=== PATIENT | female | born 1980 | race Caucasian/White ===

== ENCOUNTER 2025-10-07 10:40 | Outpatient (CLI) | payer BC, SELFPAY ==
--- OUTSIDE RECORDS SUMMARY | 2025-10-08 12:02 | XMS_ITS | Clinical Summary ---
Author Organization [facility] Address [address] [place] [address] Care Team Providers Care Direct Entry Midwife Name Role Phone Dominic Wei MD Primary Care Provider [phone] Family History Medical History Relation Name Comments Breast cancer Maternal Grandmother GREAT DX AGE UNKNOWN Breast cancer Mother Ovarian cancer Neg Hx Relation Name Status Comments Maternal Grandmother GREAT Mother Alive Social History Tobacco Use Types Packs/Day Years Used Date Smoking Tobacco: Never Assessed Abuse Screen Answer Date Recorded Unsafe at Home or Work/School Not on file Feels Threatened by Someone? Not on file 05/2023 Does Anyone Keep You from Co ntacting Others or Doint Things Outside the Home? Not on file 07/17/2023 Physical Sign of Abuse Present Not on file 1 Housing Stability Answer Date Recorded Current Living Arrangements Not on file 05/2023 Potentially Unsafe Housing Conditions Not on mohsen e 07/17/2023 Family and Community Support Answer Neel e Recorded Help with Day-to-Day Activities Not on file 07/17/2023 Lonely or Isolated Not on file 07/17/2023 Employment Answer Date Recorded Do you want help finding or keeping work or a larry b? Not on file 07/17/2023 Disabilities Answer Date Recorded Concentrating, Remembering, or Making Decisions Difficulty Not on file 07/17/2023 Doing Errands Independently Difficulty Not on fi le 07/17/2023 Education Answer Date Recorded Help with school or training? Not on file Preferred Language Not on file 07/17/2023 Comments No Sex and Gender Information Value Date Recorded Sex Assigned at Not on file Legal Sex Female 1:11 PM EDT Gender Identity Not on file Sexual Orientation Not on file Plan of Treatment Health Maintenance Due Date Last Done Comments ANNUAL PHYSICAL 1980 Annual Gynecologic Pelvic and Breast Exam 1980 HEPATITIS C SCREENING 1980 TDAP/TD VACCINES (1 - Tdap) 1999 INFLUENZA VACCINE 05/10/2025 COLOGUARD 2025 COLON CANCER SCREENING 5 YEAR SIGMOIDOSCOPY 2025 COLONOSCOPY 2025 COLORECTAL CANCER SCREENING 2025 CT COLONOGRAPHY 2025 FECAL OCCULT BLOOD TEST 2025 FIT Testing (1 year) 2025 MAMMOGRAM 01/31/2026 02/01/2024, 10/0 02/2023, 09/23/2022, Additional history exists Pneumococcal Vaccine 0-49 Aged Out No longer eligible based on patient's age to complete this topic Procedures Procedure Name Priority Date/Time Associated Diagnosis Comments MAMMO DIAGNOSTIC DIGITAL TOMOSYNTHESIS BILATERAL W CAD Routine 02/01/2024 2:11 PM EDT Abnormal mammogram from Last 3 Months or Most Recently Relevant to Health Maintenance Results * Mammo Diagnostic Digital Tomosynthesis Bilateral With CAD (02/01/2024 2:11 PM EDT) Anatomical Region Laterality Modality Breast Bilateral Mammography 02/01/2024 2:06 PM EDT Impressions 02/01/2024 2:08 PM EDT BI-RADS 3, probably benign findings. RECOMMENDATION: 12-month follow-up bilateral diagnostic mammogram is advised for the bilateral asymmetries as described above. If the findings are stable at that time this will establish 2 years of stability. The standard false-negative rate of mammography is between 10% and 25%. Complex patterns or increased breast density will markedly elevate the false-negative rate of mammography. A results letter, in lay terminology, will be given to the patient at the conclusion of the exam. Physician Order Diagnostic Mammogram with Breast Ultrasound if needed. Diagnosis: Abnormal Mammogram This report was finalized on 02/01/2024 2:[address] Brian Larios MD. Narrative 02/01/2024 2:08 PM EDT EXAMINATION:MAMMO DIAGNOSTIC DIGITAL TOMOSYNTHESIS BILATERAL W CAD- HISTORY: 43-year-old female for follow-up for bilateral breast asymmetries. TECHNIQUE: 2D and 3D bilateral MLO and cc views were obtained. CAD was utilized. COMPARISON: Prior studies dating back to 07/27/2022. FINDINGS: The breast tissue is heterogeneously dense, which may obscure small masses. Previously described focal asymmetry in the upper inner quadrant of the left breast, posterior one third depth, is less conspicuous compared to the prior studies. Previously described asymmetry in the right breast on the MLO view, retroareolar plane, anterior one third depth, is less conspicuous compared to the prior study. Previously described asymmetry in the right breast on the cc view laterally, middle one third depth, is less conspicuous compared to the prior study. Otherwise, no worrisome masses, calcifications, or architectural distortion is identified bilaterally. Vika Degroot MD IMG MAMMOGRAPHY ORDERABLES Fin al Result from Last 3 Months or Most Recently Relevant to Health Maintenance Insurance [id number] PPO Care Teams Direct Entry Midwife Relationship Specialty Start Date End Date Dominic Wei MD PCP - General Family Medicine 07/27/22
== END 2025-10-07 23:59 | disposition home or self-care (01) ==
LOC: LAB.DROPOF 10-08 12:00
PROVIDERS: PCP Family Medicine; Visit Provider Family Medicine
DX: N39.0 Urinary tract infection, site not specified (principal)
CPT/HCPCS: 87086